=== PATIENT | female | born 1980 | race Caucasian/White ===

== ENCOUNTER 2017-09-13 11:43 | Emergency (ER) | payer MEDICAID ==
[2017-09-13 11:47] VITALS: BP 96/75; PULSE 73; RESP 18; TEMP 98; O2SAT 99
--- NOTE | 2017-09-13 12:10 | C.PDOC ---
History Of Present Illness 37 yo female come in for evaluation of Left earache gradually developed for past 1.5 wks. Pt reports, pain is localized, intermittent, worse for past few days. Pt admits, was seen by PMD 1 weeks ago when was given " ear drops for infection" without significant improvement. Otherwise, pt denies fever, chills, headache, vertigo, dizziness, ear discharge, known trauma or injury, sore throat , drooling, neck pain, denies any other active complaints. Ambulate to ED for evaluation, not in any apparent distress. Pt also request test. Time Seen by Provider: 09/13/17 11:46 Chief Complaint (Nursing): ENT Problem History Per: Patient Past Medical History Reviewed: Historical Data, Nursing Documentation, Vital Signs Vital Signs: Last Vital Signs Temp 98 F 09/13/17 11:45 Pulse 73 09/13/17 11:45 Resp 18 09/13/17 11:45 BP 96/75 L 09/13/17 11:45 Pulse Ox 99 09/13/17 12:15 - Medical History PMH: No Chronic Diseases Surgical History: No Surg Hx Family History: States: No Known Family Hx - Social History Hx Tobacco Use: No Hx Alcohol Use: No Hx Substance Use: No Review Of Systems Except As Marked, All Systems Reviewed And Found Negative. Constitutional: Negative for: Fever, Chills Eyes: Negative for: Vision Change ENT: Positive for: Ear Pain. Negative for: Ear Discharge, Nose Discharge, Mouth Pain, Mouth Swelling, Throat Pain, Throat Swelling Cardiovascular: Negative for: Chest Pain, Palpitations Respiratory: Negative for: Cough, Shortness of Breath, Wheezing Gastrointestinal: Negative for: Nausea, Vomiting, Abdominal Pain, Diarrhea Genitourinary: Negative for: Incontinence Musculoskeletal: Negative for: Neck Pain, Back Pain Skin: Negative for: Rash Neurological: Negative for: Weakness, Numbness, Altered Mental Status, Headache , Dizziness Physical Exam - Physical Exam Appears: Well, Non-toxic, No Acute Distress Skin: Normal Color, Warm, No Rash Head: Normacephalic Eye(s): bilateral: PERRL Ear(s): Left: TM Obscured By Wax (no ear canal edema or erythema, no discharge) , Right: Normal, Bilateral: Other (no mastoid tenderness B/L) Nose: No Flaring, No Discharge, No Deformity, No Tenderness Oral Mucosa: Moist, No Drooling, No Trismus Tongue: Normal Appearing Lips: Normal Appearing Teeth: Normal Dentition Gingiva: Normal Appearing Throat: No Erythema, No Drooling Neck: Normal ROM, Trachea Midline, Supple Lymphatic: No Adenopathy (cervical) Extremity: Normal ROM, No Pedal Edema, No Deformity, No Swelling Neurological/Psych: Oriented x3, Normal Speech ED Course And Treatment - Laboratory Results Urine POC: Negative O2 Sat by Pulse Oximetry: 99 Pulse Ox Interpretation: Normal Progress Note: On re-eval, pt is afebrile, hemodynamicaly stable. Non-toxic. PulseOx 99%RA. ENT: exam c/w Left cerumen impaction. Noevidence of otitis externa, no mastoid tenderness/edema or erythema. Neck: SUpple, (-) cervical lymphodenopathy B/L. Pt advised on course of ds. ref. to f/u with ENT in 1-2 days for re-eval and further tx as need. return to ED if any worsening ro new changes. Disposition Counseled Patient/Family Regarding: Diagnosis, Need For Followup, Rx Given - Disposition Referrals: Massimo Parra MD [Staff Provider] - Disposition: HOME/ ROUTINE Disposition Time: 12:10 Condition: STABLE Additional Instructions: Use medication as prescribed Follow up with ENT in 1-2 days for re-evaluation and further treatment Return to ED if any worsening or new changes. Prescriptions: Carbamide Peroxide [Debrox 15 Ml] 3 drop OT BID #1 bottle traMADol [Ultram] 50 mg PO TID #7 tab Instructions: Ear Wax Impaction Forms: [employer] ([place]) - Clinical Impression Clinical Impression: Cerumen impaction, test negative
== END 2017-09-13 12:38 | disposition home or self-care (01) ==
LOC: C.ER 11:43
DX: H61.22 Impacted cerumen, left ear (principal); Z32.02 Encounter for pregnancy test, result negative